=== PATIENT | male | born 1985 | race Two or more races ===

== ENCOUNTER 2017-11-09 18:55 | Emergency (ER) | payer OTHER ==
[2017-11-09 19:03] VITALS: PULSE 96; RESP 16; O2SAT 98
[2017-11-09] MEDS ORDERED: Tdap Vaccine 0.5 ml Vial (10-64 yrs) IM ONE ×2 (19:30→19:41)
[2017-11-09] MEDS ORDERED: Bacitracin OINT 15GM TOP STA (19:46)
--- NOTE | 2017-11-09 19:46 | ED PDOC ---
HPI: Skin/Bite Injury Time Seen by Provider: 11/09/17 19:06 Chief Complaint (Nursing): Abnormal Skin Integrity Chief Complaint (Provider): Concern for FB of Skin History Per: Patient History/Exam Limitations: no limitations Additional Complaint(s): 32-year-old male, with a PMHx of Prolactinoma, presents to ED for evaluation of possible FB to the left upper arm. Patient states just prior to arrival in ED he was self-administering testosterone with a subcutaneous needle and believes the needle may have broken off and is now underneath the skin. Patient reports that he can feel it under the skin and states that he attempted to remove it at home with the corner of a razor blade without success. Unknown last tetanus vaccine. PMD: Abhi Meredith Past Medical History Reviewed: Historical Data, Nursing Documentation, Vital Signs Vital Signs: Last Vital Signs Temp 98.3 F 11/09/17 19:52 Pulse 96 H 11/09/17 18:59 Resp 16 11/09/17 18:59 BP 159/89 H 11/09/17 18:59 Pulse Ox 98 11/09/17 20:47 - Medical History Other PMH: Prolactinoma - Surgical History Surgical History: No Surg Hx - Family History Family History: States: Unknown Family Hx - Social History Current smoker - smoking cessation education provided: No (Chews tobacco) Alcohol: None Drugs: Denies - Immunization History Hx Tetanus Toxoid Vaccination: No (unknown) - Allergies Allergies/Adverse Reactions: Allergies Allergy/AdvReac Type Severity Reaction Status Date / Time pollen extracts Allergy Intermediate CONGESTION Verified 11/09/17 19:18 Review of Systems ROS Statement: Except As Marked, All Systems Reviewed And Found Negative Skin: Positive for: Other (possible FB) Physical Exam - Reviewed Nursing Documentation Reviewed: Yes Vital Signs Reviewed: Yes - Physical Exam Appears: Positive for: Well, Non-toxic, No Acute Distress Head Exam: Positive for: NORMOCEPHALIC Skin: Positive for: Normal Color, Warm, Dry Eye Exam: Positive for: EOMI, PERRL ENT: Positive for: Other (Airway patent (-) stridor) Neck: Positive for: Painless ROM, Supple Cardiovascular/Chest: Positive for: Regular Rate, Rhythm Respiratory: Positive for: Normal Breath Sounds. Negative for: Respiratory Distress Extremity: Positive for: Normal ROM (of bilateral upper extremities), Other ((+ ) 1cm superficial,horizontal laceration to lateral aspect of the proximal deltoid of the L arm, (-) Active bleeding, (-) swelling (-) palpable foreign body). Negative for: Tenderness, Deformity, Swelling Neurologic/Psych: Positive for: Alert, Oriented (x 3) - ECG O2 Sat by Pulse Oximetry: 98 (RA) Pulse Ox Interpretation: Normal Medical Decision Making Medical Decision Making: Impression(s): Concern for FB of upper arm Plan: - Left Humerus X-Ray - Adacel (10-64 years) 0.5 ml IM - Bacitracin Ointment and bandage to laceration site Patient brought subcutaneous needle and syringe with him. Bevel and tip of needle appear to be intact. Needle noted to be pushed up into the syringe. Patient unlikely to have foreign body, but will obtain X-Ray to confirm. Time: 19:41 L Humerus X-Ray. No foreign body detected. Patient advised that official radiology read of XR is still pending and will call the patient if there is any discrepancy within 24 hours. On re-evaluation, patient offers no additional complaints at this time. On exam , patient remains AAOx3, in no acute distress. Neck is supple, lungs CTA, cardiac RRR, neuro exam shows no focal findings. VSS, stable fro discharge. Diagnostic results d/w the patient in great detail. Dx of skin abrasion, concern for FB of skin d/w the patient. Based on history, exam and diagnostic results plan will be for discharge and outpatient follow up. Advised to follow up with primary care physician in 1-2 days without fail. Advised to take medication as prescribed. Return to the emergency room at any time for any new or worsening symptoms. Patient states he fully agrees with and understands discharge instructions. States that he agrees with the plan and disposition. Verbalized and repeated discharge instructions and plan. I have given the patient opportunity to ask any additional questions. Scribe Attestation: Documented by Jamie Rivas, acting as a scribe for Natasha Prabhakar PA-C. Provider Scribe Attestation: All medical record entries made by the Scribe were at my direction and personally dictated by me. I have reviewed the chart and agree that the record accurately reflects my personal performance of the history, physical exam, medical decision making, and the department course for this patient. I have also personally directed, reviewed, and agree with the discharge instructions and disposition. Disposition - Clinical Impression Clinical Impression: Arm injury, Skin abrasion - Patient ED Disposition Is Patient to be Admitted: No Counseled Patient/Family Regarding: Studies Performed, Diagnosis, Need For Followup, Rx Given - Disposition Disposition: Routine/Home Disposition Time: 19:43 Condition: GOOD Additional Instructions: FOLLOW UP WITH PMD NEEDED RETURN TO ED WITH ANY NEW OR WORSENING SYMPTOMS. Instructions: Skin Abrasions, Wound Care Forms: [employer] ([place] Citizen) Print Language: [place]
[2017-11-09 19:52] VITALS: TEMP 98.3
[2017-11-09 21:09] VITALS: BP 130/82
--- NOTE | 2017-11-10 07:42 | RAD ---
HISTORY: R/O FB, patient reports needle broke off inside COMPARISON: No prior FINDINGS: BONES: Normal. No fracture. JOINTS: Normal. No osteoarthritis. SOFT TISSUE: Normal. OTHER FINDINGS: None . IMPRESSION: Normal Bone Xray.
== END 2017-11-09 19:52 | disposition home or self-care (01) ==
LOC: H.ER 18:55
DX: S50.812A Abrasion of left forearm, initial encounter (principal); Y92.89 Other specified places as the place of occurrence of the external cause; Z72.0 Tobacco use